=== PATIENT | female | born 1975 | race Caucasian/White ===

== ENCOUNTER → 2020-04-30 15:10 | Outpatient (CLI) | payer OTHER, SELFPAY ==
[2016-02-14 19:57] VITALS: BMI 20.3
--- NOTE | 2020-04-30 14:15 | EMB_PTH ---
PATIENT: DONTE BULL LOC: [facility] U#:[id number] AGE/SX: 50/F ROOM: RE04/30/[address]: Dr. Jim Bull MD : 1975 BED: DIS: SPEC #: [id number] RECD: 04/30/20 18:26 STATUS: CHACHA RELele #: [id number] LINA: 04/30/20 14:[address]: Jim Bull DEPT: SURGICAL PATHOLOGY RECD BY: Aaron Jimenez ENTERED: 05/01/20 08:53 SP TYPE: ENDORush BX/C JESUS DR: Ernestina Cao PA-C Tissues: Endometrium, NOS Procedures: Surgery Specimen Level IV HEADER OPERATION: Endometrial biopsy PRE-OP DIAGNOSIS: Abnormal uterine bleeding TISSUE SUBMITTED: Endometrial biopsy MICROSCOPIC DIAGNOSIS Endometrium, biopsy: Secretory endometrium. AM:nathaly 05/02/20 MICROSCOPIC DESCRIPTION Slides are reviewed. GROSS DESCRIPTION Received is one container labeled with the patient's name and not further designated. The specimen consists of multiple fragments of pink hemorrhagic soft tissue that in aggregate measure 3 x 2.5 x 0.3 cm. The specimen is totally submitted in one cassette. / SJ:nathaly 05/01/20 TC:5 CPT: 44218
[2020-04-30 15:46] LABS: Hematocrit 41.2 % (37-47); Hemoglobin 13.4 g/dL (12.0-15.0); Mean Corp Hgb Conc 32.5 g/dL (32-36); Mean Corpuscular Hgb 30.3 pg (27.0-32.0); Mean Corpuscular Volume 93.2 fL (81-99); Mean Platelet Vol. 10.2 fl (6.2-12.0); Platelet Count 246 K/mm3 (150-450); RBC Distribution Width CV 11.9 % (11.6-14.6); Red Blood Count 4.42 M/mm3 (4.2-5.4); White Blood Count 6.5 K/mm3 (4.4-11.0)
[2020-04-30 16:21] LABS: Prolactin 7.6 ng/mL; T4 Free Direct 0.96 ng/dL (0.76-1.46); Thyroid Stim Hormone (TSH) 1.78 uIU/mL (0.358-3.74)
== END ==
PROVIDERS: PCP Family Medicine; Visit Provider Obstetrics & Gynecology
DX: N93.9 Abnormal uterine and vaginal bleeding, unspecified (principal)
CPT/HCPCS: 36415; 84146; 84439; 84443; 85027; 88305

== ENCOUNTER 2020-06-25 10:21 | Day surgery (SDC) | payer OTHER, SELFPAY ==
[2020-06-25] VITALS (7 sets, daily range): BP systolic 96–124; BP diastolic 60–81; PULSE 53–72; RESP 16; TEMP 37–37.5; O2SAT 100; BMI 22.1
--- NOTE | 2020-06-25 06:58 | PCM.HPOB.BLA ---
History and Physical Surgical History and Physical Name: SUHAIL BULL Age: 45 Date of : 1975 Suhail Bull, a 45 year old female 3 0 0 0 3, presents for Hysteroscopy, D. Maggie ablation on June 25, 2020 at 12:00. -- Suhail is here today for consultation regarding heavy irregular menses she has been having heavy bleeding with menses for the past several years. Patient states that she has no cramping or pain with menses but that she passes clots. Procedure reviewed, consents reviewed and signed. Planned hysteroscopy D and C, Maggie. MEDICATIONS HISTORY: ALLERGIES: No Known Drug Allergies, Doxycycline and Hives and/or rash Infections - chicken pox Illnesses - none Accidents - None Hospitalizations - see surgery most recent pap was in 02/2020; Review of Systems: GENERAL - Denies fever, or chills SKIN - Denies skin changes EYES - Denies visual changes EARS - Denies difficulty hearing NOSE - Denies nasal congestion or bleeding MOUTH - Denies sore throat or difficulty swallowing NECK - Denies pain or swelling RESPIRATORY - Denies shortness of breath or wheezing CARDIOVASCULAR - Denies palpitations or chest pain GASTROINTESTINAL - Denies nausea, vomiting, diarrhea, constipation GENITOURINARY - heavy menses MUSCULOSKELETAL - Denies joint or muscle pain NEUROLOGICAL - Denies localized numbness or weakness PSYCHIATRIC - Denies depression or anxiety ENDOCRINE - Denies heat or cold intolerance, weight loss or gain HEMATO-IMMUNOLOGIC - Denies excessive bleeding with cuts SOCIAL HISTORY: Alcohol Use - occasionally Smoking - denies smoking Diet - balanced Diet Lifestyle - Exercise - regular Seat Belt Use - always Employer - [employer] Illicit Drug Use - denies use of street drugs Sexual Activity - Residence - with Spouse-Sig Other Name - Gabriel Control - vasectomy FAMILY HISTORY: MENSTRUAL HISTORY: LMP Known?- DefiniteAmount/Duration - 9 days, Regularity - heavy, Frequency - every 23-25 days days, LMP - 06/09/20, Age Onset Menarche - 15 PAST PREGNANCIES: Total Pregnancies - 3; Full Term Pregnancies - 3; Premature - 0; Abortions, Induced - 0; Abortions, Spontaneous - 0; Ectopics - 0; Multiple Births - 0; Living Children - 3 SURGICAL HISTORY: 1. C-sections 2000, 2002, 2009 ; - 2. tonsils ; - PHYSICAL EXAM BP- 110/72 Sitting, Right arm, regular cuff Temp- 98.4 Taken Orally Weight- 143.52588 lbs Height- 67 inch BMI:22.44 CONSTITUTIONAL - NAD, well nourished, and well developed SKIN - No rash, lesions, or ulcers HEENT - Normocephalic, PERRLA, EOMI NECK - No nodes, no nuchal rigidity and thyroid normal size and texture LYMPH NODES - Palpation of lymph nodes in neck and groins within normal limits LUNGS - CTA x2 without wheezes, crackles or rales CARDIAC - Regular rate and rhythm without rubs, murmurs, or gallops ABDOMEN - Without hepatosplenomegaly, distention, masses, rebound, or guarding; normal bowel sounds; no hernias EXTREMITIES - No edema or calf tenderness NEUROLOGICAL - Cranial nerves II-XII grossly intact PSYCHIATRIC - A and O to time, place, person, mood and affect External Genital Vagina - non-tender without lesions Urethra/Urethral Meatus - non-tender Bladder - non-tender Vagina - vaginal hernandez are pink and moist without loss of rugae and no evidence of atropy Cervix - without cervical motion tenderness and has normal size and features without evident lesions Uterus - 5-6 cm in size, mobile and nontender Adnexa - clear without masses or tenderness ASSESSMENT/PLAN: 1. Abnormal Uterine And Vaginal Bleeding, Unspecified Now with early longer periods that are regular but heavy. Getting worse Discussed NSAIDs vs IUD vs Ablation. Tried NSAIDs with no success. U/s wnl, endometrial stripe 9mm. Free fluid in pelvis, likely physiologic. Cervical polyp EMB neg, labs wnl. Discussed results with pt, desires endometrial ablation. R/b/a discussed For Hysteroscopy, D, Endometrial ablation R/b/a of procedure discussed not limited to visceral or vascular injury, damage to surrounding orgrans, blood loss and need for transfusion pt states understanding, all questions were answered, consent was signed.
[2020-06-25 10:46] LABS: Hematocrit 42.5 % (37-47); Hemoglobin 14.5 g/dL (12.0-15.0); Mean Corp Hgb Conc 34.1 g/dL (32-36); Mean Corpuscular Volume 96.8 fL (81-99); Mean Platelet Vol. 10.2 fl (6.2-12.0); Platelet Count 191 K/mm3 (150-450); RBC Distribution Width CV 12.5 % (11.6-14.6); RBC Distribution Width SD 43.3 fl (35.1-43.9); Red Blood Count 4.39 M/mm3 (4.2-5.4); White Blood Count 6.5 K/mm3 (4.4-11.0)
[2020-06-25] MEDS: Lactated Ringers 1,000 ML 75 ML IV ×2 (11:00→12:49)
[2020-06-25 11:26] LABS: Internal QC Validated? YES +Cl - CLEAR BKGD
[2020-06-25 11:29] LABS: Pregnancy, Urine Negative Negative
--- NOTE | 2020-06-25 12:08 | PCM.DC.D&C ---
Discharge Diet: No Restrictions Discharge Activity: Return to Normal Activity, May not drive while taking narcotic pain medications., May Shower May resume sexual activity in: 2 weeks Weight Bearing Status: Weight bearing as tolerated Call your doctor if your incision/area has: Foul Smelling Discharge Call your doctor if you observe: Fever of 101 or Higher, Shortness of breath, Chest pain Allergies/Adverse Reactions: Allergies doxycycline Allergy (Verified 06/18/20 11:01) Rash Medications to take at Discharge Multivitamin with Minerals [Multiple Vitamin] 1 ea PO DAILY 06/18/20 Oxycodone [Oxyir] 5 mg PO Q4H PRN PRN 2 Days #12 tab 06/25/20 The following prescriptions were given: Oxycodone [Oxyir] 5 mg PO Q4H PRN PRN 2 Days #12 tab PRN Reason: Pain Score 6-10 Transmission Status: Received by [id number] Primary Care Physician: Ernestina Cao PA-C [Primary Care Provider] - Test Results: Test results from this visit will be discussed in further detail at your follow-up appointment, if applicable. Please Follow Up With: Jim Bull MD When: 2 to 4 weeks
--- NOTE | 2020-06-25 12:36 | PCM.OPRPT ---
Report of Operation Date of Procedure: 06/25/20 Pre-Operative Diagnosis: Abnormal uterine bleeding Post-Operative Diagnosis: Abnormal uterine bleeding Surgery/Procedure Performed:: Hysteroscopy, endometrial ablation Description of Surgical Findings:: Surgeon: Jim Bull MD Labor Relations Representative: None EBL: 5 cc Urine output: 60 cc IV fluids: 1000 cc Anesthesia: General Complications: None Pathology Findings: Normal uterine cavity. No polyps or fibroids noted. Post procedure hysteroscopy with endometrial ablation and no pathology noted. Consent: Patient with abnormal uterine bleeding in need of hysteroscopy Royer ablation. Patient understands the risk of the procedure include but are not limited to visceral or vascular injury, prolonged hospitalization, blood loss and need for transfusion, reoperation. Patient state understanding wish to proceed. All questions were answered consent was signed. Procedure: Patient was brought back to the OR where general anesthesia was found to be adequate. Patient was prepared and draped in a dorsal lithotomy position with yellowfin stirrups. A weighted speculum was placed in the posterior aspect of the vagina. Cervical dilators were used to dilate the cervix. Hysteroscope was inserted and above findings were noted. Uterine cavity was sounded to 9 cm. Cervical length was found to be 3 cm. Maggie cavity length set to 6 cm. Maggie inserted under direct visualization. Safety test was passed. Endometrial ablation performed. Maggie device removed under direct visualization and hysteroscope inserted with above findings noted. Good hemostasis was noted. All counts correct x2. Patient tolerated the procedure well was brought recovery in stable condition.
== END 2020-06-25 13:54 | disposition home or self-care (01) ==
LOC: SDC 10:22 → AC 10:22
PROVIDERS: Anesthesiology; PCP Family Medicine; Referring Provider Obstetrics & Gynecology; Visit Provider Obstetrics & Gynecology
PROC: 0U5B8ZZ Destruction of Endometrium, Via Natural or Artificial Opening Endoscopic (ICD-10-PCS; CPT 58558; principal; 2020-06-25 11:45)
DX: N93.9 Abnormal uterine and vaginal bleeding, unspecified (principal); N84.1 Polyp of cervix uteri; Z20.828 Contact with and (suspected) exposure to other viral communicable diseases
CPT/HCPCS: 58563; 81025; 85027; 86850; 86900; 86901; 87426; C9803; J7120; J2405

== ENCOUNTER → 2022-07-31 | Outpatient (CLI) | payer OTHER, SELFPAY ==
[2022-07-31 14:43] LABS: Hematocrit 39.1 % (37-47); Hemoglobin 13.1 g/dL (12.0-15.0); Mean Corp Hgb Conc 33.5 g/dL (32-36); Mean Corpuscular Hgb 31.8 pg (27.0-32.0); Mean Corpuscular Volume 94.9 fL (81-99); Mean Platelet Vol. 9.9 fl (6.2-12.0); Platelet Count 251 K/mm3 (150-450); RBC Distribution Width CV 11.9 % (11.6-14.6); RBC Distribution Width SD 41.6 fl (35.1-43.9); Red Blood Count 4.12 M/mm3 (4.2-5.4); White Blood Count 6.4 K/mm3 (4.4-11.0)
[2022-07-31 15:33] LABS: Estradiol 154.1 pg/mL; Follicle Stimulating Hormone 16.7 mIU/mL; T4 Free Direct 0.91 ng/dL (0.76-1.46); Thyroid Stim Hormone (TSH) 1.12 uIU/mL (0.358-3.74)
== END | disposition home or self-care (01) ==
LOC: WOBLAB 13:59
PROVIDERS: PCP Family Medicine; Visit Provider Obstetrics & Gynecology
DX: N93.9 Abnormal uterine and vaginal bleeding, unspecified (principal)
CPT/HCPCS: 36415; 82670; 83001; 83002; 83036; 84439; 84443; 85027